=== PATIENT | female | born 1955 | race Caucasian/White ===

== ENCOUNTER 2025-03-28 09:18 | Emergency (ER) | payer MEDICARE, OTHER, SELFPAY ==
[2025-03-28 09:24] VITALS: BP 140/79
[2025-03-28 11:23] VITALS: BMI 21.7
[2025-03-28 11:28] VITALS: BP 131/77
[2025-03-28 11:30] LABS: % Eosinophils 0.8 % (0-6); % Immature Granulocytes 0.2 % (0-0.5); % Lymphocytes 20.5 % (20.5-51.1); % Monocytes 6.4 % (1.7-9.3); % Neutrophils 71.1 % (42.2-75.2); Absolute Basophils 0.1 10^3/uL (0-0.2); Absolute Monocytes 0.3 10^3/uL (0.1-0.6); Absolute Neutrophils 3.5 10^3/uL (1.4-6.5); Hematocrit 43.3 % (37.0-47.0); Hemoglobin 14.4 g/dL (12.0-16.0); Mean Corp Hgb Conc. 33.3 g/dL (33.0-37.0); Mean Corpuscular Hgb 29.1 pg (27.0-31.0); Mean Corpuscular Volume 87.7 fL (81.0-99.0); Mean Platelet Volume 10.8 fL (7.4-10.4); Nucleated Red Blood Cells % 0 %; Platelet Count 155 10^3/uL (130-400); Red Blood Cell Count 4.94 10^6/uL (4.20-5.40); Red Cell Dist. Width 13.2 % (11.5-14.5); White Blood Cell Count 4.9 10^3/uL (4.8-10.8)
--- NOTE | 2025-03-28 11:42 | ED.GENMED ---
History of Present Illness
General
Chief Complaint: Chest Pain
Source: patient
Exam Limitations: none
Time Seen by Provider: 03/28/25 10:59
Nursing documentation reviewed up to this point in time: agreed with
History of Present Illness
History of Present Illness:
Patient is a healthy 69-year-old female who presents to the emergency department for evaluation of chest pain. Patient states that around 2 AM she woke up from sleep as there was a bug crawling on her wrist and once she was awake she noticed a
'twinging' sensation in her left chest. She states that it only lasts seconds and has been coming and going since onset around 2 AM. It has mainly occurred while she has been sitting or lying down and denies any exertional component. No pleuritic
component.
She denies any associated tightness in her chest, shortness of breath/difficulty breathing, diaphoresis, nausea, lightheadedness. She denies any recent fever or cough. No hemoptysis. She denies any radiation of pain into her back, shoulder, jaw.
Patient denies any recent travel or recent surgeries. No exogenous hormone use. No personal or family history of blood clots or clotting disorders.
Patient denies any recent trauma. She does however note that she has been lifting heavy flowerpots in her garden and is wondering if she may have pulled a muscle.
Past History
Past History
ED Past Medical History: None
Social History
Tobacco: Non-smoker
Personal:
Living: with family
Review of Systems
Review of Systems
Allergies reviewed?: Yes
All Other Systems: ROS reviewed and negative except as documented in HPI and ROS
Phy Exam
Physical Exam
Physical Exam:
Vitals: Mildly hypertensive, otherwise vital signs stable. Afebrile
General: Patient is very well appearing, no acute distress
Skin: Warm and dry, no rashes or lesions
Head: Normocephalic, atraumatic
Eyes: Sclera nonicteric.
Throat: Protecting airway
Neck: Normal ROM, no cervical spine tenderness, no meningismus. No JVD
Cardiac: Regular rate and rhythm, no murmurs. No reproducible chest wall tenderness. No rash.
Pulm: Normal respiratory effort, no wheezes, rales, rhonchi heard on exam
.
Abdomen: Abdomen soft and nontender. Nondistended.
Extremities: No evidence of cyanosis or edema. Palpable DP pulses bilaterally. Negative Homans' sign bilaterally.
Neuro: AAOx3. Grossly intact.
Psychiatric: Normal affect.
Scores
Heart Score for Chest Pain Patients
STEMI patient?: No
History: Slightly or Non-Suspicious
ECG: Normal
Age: >/= 65 years
Risk Factors: 1 or 2 Risk Factors
Troponin: </= Normal Limit
Heart Score for Chest Pain Patients: 3
Heart Score Risk: 2.5% MACE over next 6 weeks
Course
Orders/Labs/Results
Orders:
Orders
03/28/25 09:19
EKG [Electrocardiogram (*1)] Urgent
Reason for Study: Chest Pain
EKG- Treatment ONCE
03/28/25 10:57
IV Insert/Care/Rem.- Treatment PRN
03/28/25 11:18
Complete Blood Count/With Diff Urgent
Comprehensive Metabolic Panel Urgent
Troponin I Urgent
03/28/25 11:50
D-Dimer Urgent
03/28/25 13:03
CR Chest - 2 Views Urgent
Comment:
Reason For Exam: Left sided chest pain
03/28/25 14:20
Electrocardiogram (*1) Urgent
Reason for Study: Chest Pain
EKG- Treatment ONCE
03/28/25 14:44
Troponin I Urgent
Abnormal Lab Results
03/28/25
11:18
MPV 10.8 H fL
(7.4-10.4)
Absolute Lymphs (auto) 1.0 L 10^3/uL
(1.2-3.4)
Chloride 109 H mmol/L
(98-107)
BUN 18 H mg/dl
(7-17)
03/28/25 11:18
03/28/25 11:18
Vital Signs
Initial and Last Documented VS:
Initial Vital Signs
Temp Pulse Resp BP Pulse Ox
98.2 F 76 16 140/79 98
03/28/25 09:24 03/28/25 09:24 03/28/25 09:24 03/28/25 09:24 03/28/25 09:24
Last Documented Vital Signs
Temp Pulse Resp BP Pulse Ox
98.2 F 71 31 116/77 96
03/28/25 09:24 03/28/25 13:15 03/28/25 13:15 03/28/25 13:00 03/28/25 13:15
MDM/Problems Addressed
Differential Diagnosis Includes:
Not limited to: Muscular strain, costochondritis, pleurisy, zoster, pulmonary embolism, acute coronary syndrome, etc.
MDM/Problems Addressed:
69-year-old female presenting with intermittent atypical left sided chest discomfort since this morning. No exertional or pleuritic component to symptoms. No fever or cough. No history of CAD. Vitals and physical exam as above. Symptoms seem most
consistent with likely muscular strain. Lower suspicion for acute coronary syndrome or pulmonary embolism, although will screen with serial troponin and d-dimer. No rash to suggest zoster.
Update: Patient has remained essentially asymptomatic in emergency department and hemodynamically stable. Labs without clinically significant abnormalities. Troponin negative x 2 and d-dimer negative. EKGs without acute ischemic findings. Chest
x-ray without acute findings. Suspect likely MSK etiology. Very low suspicion for acute cardiac/pulmonary process. Feel stable for discharge with primary care follow-up. She will also follow up with applier for routine visit. Return precaution
discussed. Patient comfortable with plan.
Chronic conditions affecting care:
N/A
Acute Exacerbation and/or Progression of Chronic Illness:
N/A
*Radiology
Radiology exam reviewed: preliminary read by ED provider (Chest x-ray reviewed by me-no acute abnormalities) and radiology read reviewed
*Pulse Oximetry
Patient hypoxic: no
*EKG
Interpreted by ED Provider?: Yes
EKG Intrepretation Date: 03/28/25
Interpretation: abnormal
Comparison EKG: changes noted
Heart Rate: 69
Rate: normal
Rhythm: sinus
Guys: indeterminate
Interval: normal QT interval
QRS Pattern: right bundle branch block
Ischemia: no ischemia
*[employer] Customer Service Specialist Interpretation
Rate: normal
Interpretation: normal
Heart Rate: 72
Rhythm: sinus
*Critical Care Note
Total Time (30-74mins, 75-104mins- exclusive of procedures): Not Applicable
ED Attending Note
-
Portions of this chart may have been created with voice recognition software.� Occasional wrong word or��sound alike� substitutions may have occurred due to the inherent limitations of voice recognition software.
Discharge Plan
Departure
Patient Disposition: Home (Routine Discharge)
Date of Disposition: 03/28/25
Time of Disposition: 15:36
Patient with high blood pressure during this ER visit?: Yes
Condition: Good
Covid-19: Not Applicable
Discharge Problem:
Chest pain
Instructions: Chest pain - Discharge instructions, BLOOD PRESSURE
Prescriptions:
No Action
ascorbic acid (vitamin C) [Vitamin C] 1,000 MG tablet
2,000 mg PO DAILY
cholecalciferol (vitamin D3) [Vitamin D3] 50 MCG capsule
2,000 unit PO DAILY
[place]-3 1 EACH capsule,delayed release(DR/EC)
2 ea PO DAILY
L.acidoph,paracasei,B.animalis 1 EACH capsule
1 ea PO DAILY
acetaminophen [Tylenol] 325 mg Tablet
650 mg PO Q6HPRN PRN (Reason: mild pain)
Referrals:
Juany Singh MD [Family Provider, Family Practice]
Augustus Juan MD [Active, Cardiology] - Call in 1-3 days for appt
Activity Restrictions/Additional Instructions:
RETURN TO THE EMERGENCY DEPARTMENT FOR ANY CHEST PAIN, SHORTNESS OF BREATH/DIFFICULTY BREATHING, SEVERE BACK PAIN, DIZZINESS/LIGHTHEADEDNESS, WORSENING IN CURRENT SYMPTOMS, OR ANY OTHER CONCERNS
- As discussed�your workup in the emergency department including labs, cardiac enzymes, chest x-ray showed no acute abnormalities.
- You should limit heavy lifting as your symptoms may be related to a muscular strain. Take Tylenol and/or Motrin as needed for discomfort.
- Follow-up with cardiology further evaluation/management to ensure that symptoms are improving
Monitor your symptoms closely and return to the emergency department with any acute worsening/new symptoms or any other concerns
Interventions
Interventions:
*Risk Screen - Suicide Last Done: 03/28/25 09:24
*Neglect/Abuse Screening Last Done: 03/28/25 09:24
*Nursing Disposition Last Done: 03/28/25 16:08
ED- Cardiac Assessment Last Done: 03/28/25 11:23
Discharge Date and Time
Discharge Date/Time: 03/28/25 16:09
Print Language: [place]ET[place]
[2025-03-28 11:49] LABS: ALT (SGPT) 28 U/L (0-35); AST (SGOT) 35 U/L (14-36); Albumin 4.6 g/dl (3.5-5.0); Alkaline Phosphatase 70 U/L (38-126); Blood Urea Nitrogen 18 mg/dl (7-17); Calcium 9.8 mg/dl (8.4-10.2); Carbon Dioxide 26 mmol/L (22-30); Chloride 109 mmol/L (98-107); Estimated Creatinine Clearance 90 ml/min; Glucose 91 mg/dl (70-99); Potassium 4.5 mmol/L (3.5-5.1); Sodium 142 mmol/L (135-145); Total Bilirubin 0.8 mg/dl (0.2-1.3); Total Protein 7.5 g/dl (6.3-8.2); Troponin I < 0.012 ng/ml; eGFR > 60.00
[2025-03-28 12:00] VITALS: BP 118/74
[2025-03-28 12:56] LABS: D-Dimer < 0.27 ug/mlFEU (0.00-0.50)
[2025-03-28 13:00] VITALS: BP 116/77
[2025-03-28 15:22] LABS: Troponin I < 0.012 ng/ml
== END 2025-03-28 16:09 | disposition home or self-care (01) ==
LOC: EMR 09:18
PROVIDERS: Physician Assistant; EMERGENCY PHYSICIAN Emergency Medicine; FAMILY PHYSICIAN Family Medicine
DX: R07.89 Other chest pain (principal); R03.0 Elevated blood-pressure reading, without diagnosis of hypertension
CPT/HCPCS: 99285; 71046; 80053; 84484; 85025; 85379; 93005